=== PATIENT | female | born 1960 | race African-American/Black ===

== ENCOUNTER 2018-05-05 14:47 | Observation (INO) | payer MEDICARE ==
[~2018-05-05] VITALS: Ht 160 cm; Wt 39.1 kg
--- NOTE | ~2018-05-05 | EC ---
PATIENT:NORMA AHMADI DATE OF SERVICE: 05/05/18 SEX: F MEDICAL RECORD: [id number] DATE OF : 62 LOCATION:D.M2 D.213 AGE OF PATIENT: 58 ADMISSION DATE: 05/05/18 REFERRING PHYSICIAN: INTERPRETING PHYSICIAN: MARY CARMEN PLASENCIA MD ECHOCARDIOGRAM REPORT ECHO CHARGES 4 ECHO COMPLETE Date: 05/06/18 CLINICAL DIAGNOSIS: SYNCOPE EPISODE, HX OF HTN ECHOCARDIOGRAPHIC MEASUREMENTS (adult normal given) AC root (d.<3.7cm) 3.5 cm LV Septum d (<1.2 cm> 1.7 cm Valve Excursion 1.6 cm LV Septum (systole) 2.0 cm Left Atria (s.<4.0cm> 4.4 cm LVPW d(<1.2cm) 1.5 cm RV (d.<2.3cm) 3.8 cm LVPW (sytole) 2.1 cm LV diastole(<5.6CM) 5.3 cm MV E-F(>70mm/sec) cm LV systole 3.5 cm LVOT Diameter 1.9 cm MV exc.(>10mm) 1.9 cm Est.ejection fraction (50-75%) % DOPPLER: LVIT cm/sec A 117 cm/sec E 92.0 cm/sec LA cm/sec RVSP 51 mmHg LVOT 134 cm/sec AOP1/2T m/s Asc. Ao 205 cm/sec RVOT 94 cm/sec RA cm/sec PA 178 cm/sec AV Gradient Peak 16.84mmHg AV Mean 7.81 mmHg AV Area 1.8 cm MV Gradient Peak 5.52 mmHg MV Mean 2.77 mmHg MV Area cm COMMENTS: Motor Vehicle Dispatcher: Iron SHABAZZ Slat Basket Maker Machine: 1 Dr. Plasencia TAPE# PACS Pericardial Effusion N DATE OF SERVICE: 05/06/2018 FINDINGS: 1. Left ventricular chamber size is within normal limits. Left ventricular systolic function is normal. Overall ejection fraction is estimated at 60%. 2. Left atrium is enlarged at 4.4 cm. Right atrium and right ventricle chamber sizes are as well mildly dilated. 3. Valvular structures have normal structure and motion. 4. Doppler interrogation reveals mild mitral regurgitation and mild tricuspid regurgitation. No other valvular insufficiency or stenosis. Pulmonary systolic ECHOCARDIOGRAM REPORT [id number] NORMA AHMADI pressure is elevated, estimated at 51 mmHg. 5. Cljqa-ye-xexhm pericardial effusion is present. This is not hemodynamically significant. No evidence of left ventricular thrombus. TRANSINT:[id number] Voice Confirmation ID: [id number] DOCUMENT ID: [id number] MARY CARMEN PLASENCIA MD CC: [id number] DICTATION DATE: 05/06/18 1340 ONION TIER: 05/06/18 1646 ADM IN [facility] [address] [place] [address]
[~2018-05-05 14:47] MED LIST: ALDACTONE25 MG PO; ASPIRIN325 MG PO; FERRETTS324 MG PO; HYDRALAZINE HCL50 MG PO; HYDROCODON-ACE1 EAC7 PO; ISOSORBIDE DINI20 MG PO; LASIX40 MG PO; NORVASC10 MG PO; PROZAC20 MG PO; RENVELA800 MG PO; ROCALTROL0.5 MCG PO; ROXICODONE5 MG PO; SODIUM BICARBO325 MG PO; TUMS500 MG PO
[2018-05-05] MEDS ORDERED: SENSIPAR60 MG PO (14:54)
--- NOTE | 2018-05-05 16:57 | MORECARE ---
CASE MANAGEMENT DISCHARGE SUMMARY PATIENT: NORMA AHMADI UNIT: [id number] ADM DATE: 05/05/18 AGE: 58 : 62 SEX: F ROOM/BED: D.[facility] AUTHOR: VICTORIA BALL PHYSICIAN: REFERRING PHYSICIAN: BEATRIZ VIGIL MD DATE OF SERVICE: 05/05/18 Discharge Plan Patient Name: NORMA AHMADI [facility] [facility] 1960 Planned Disposition: Anticipated Discharge Date: Discharge Date: Expected LOS: Initial Reviewer: [email or web address] Initial Review Date: 05/05/2018 Generated: 05/05/18 5:57 pm Patient Name: NORMA AHMADI Page 80215 at 6437 All edits/amendments must be made on the electronic document DICTATION DATE: 05/05/181655 HYDROELECTRIC PLANT OPERATOR: KAMRYN 05/05/181655 RPT#: [id number] DC DATE: STATUS: ADM IN [facility] [address] [place] [address] END OF REPORT
--- NOTE | 2018-05-05 17:04 | MORECARE ---
CASE MANAGEMENT DISCHARGE SUMMARY PATIENT: NORMA AHMADI UNIT: [id number] ADM DATE: 05/05/18 AGE: 58 : 62 SEX: F ROOM/BED: D.2131 AUTHOR: VICTORIA BALL PHYSICIAN: REFERRING PHYSICIAN: BEATRIZ VIGIL MD DATE OF SERVICE: 05/05/18 Discharge Plan Patient Name: NORMA AHMADI Facility: [facility]:[place] : 1960 Planned Disposition: Anticipated Discharge Date: Discharge Date: Expected LOS: Initial Reviewer: [email or web address] Initial Review Date: 05/05/2018 Generated: 05/05/18 6:04 pm Comments DCP- Discharge Planning Updated by LISA: Ekta Venegas on 05/05/18 4:[address] CM met with patient regarding dc needs/plans. Patient is in agreement to evaluation for CM. A/O X3. Patient states she lives in her house, alone. She states she sometimes cares for her grandchildren. PCP: Vincent Dozier. Pharmacy: [facility]. Independent in ADL's. Emergency Contact: Mica Victoria (friend/S-I-L) #[phone]. States her brother, Brian Victoria (brother) same phone #, will drive her home upon discharge. DME: None. HHS: None. States she "may look into getting someone to assist with housework, it's getting harder to get it done." HD: Vincent M/W/ and states she drives herself to and from appointments. Patient denies the need for HHS, Rehab at this time. CM will assist with dc needs/plans PRN. Ekta Venegas RN, CM Last DP export: 05/05/18 3:57 pm Patient Name: NORMA AHMADI Page 45131 at 1704 All edits/amendments must be made on the electronic document DICTATION DATE: 05/05/18 170 LITIGATION EXAMINER: KAMRYN 05/05/18 170 RPT#: [id number] DC DATE: STATUS: ADM IN [facility] [address] [place] [address] END OF REPORT
--- NOTE | 2018-05-05 17:41 | MORECARE ---
CASE MANAGEMENT DISCHARGE SUMMARY PATIENT: NORMA AHMADI UNIT: [id number] ADM DATE: 05/05/18 AGE: 58 : 62 SEX: F ROOM/BED: D.2136 AUTHOR: VICTORIA BALL PHYSICIAN: REFERRING PHYSICIAN: BEATRIZ VIGIL MD DATE OF SERVICE: 05/05/18 Discharge Plan Patient Name: NORMA AHMADI Facility: [facility]:[place] : 1960 Planned Disposition: Anticipated Discharge Date: Discharge Date: Expected LOS: Initial Reviewer: [email or web address] Initial Review Date: 05/05/2018 Generated: 05/05/18 6:40 pm DCP- Discharge Planning Updated by [email or web address]: Ekta Venegas on 05/05/18 4:[address] CM met with patient regarding dc needs/plans. Patient is in agreement to evaluation for CM. A/O X3. Patient states she lives in her house, alone. She states she sometimes cares for her grandchildren. PCP: Vincent Dozier. [facility]. Independent in ADL's. Emergency Contact: Mica Victoria (friend/S-I-L) #[phone]. States her brother, Brian Victoria (brother) same phone #, will drive her home upon discharge. DME: None. HHS: None. States she "may look into getting someone to assist with housework, it's getting harder to get it done." HD: Vincent M/W/ and states she drives herself to and from appointments. Patient denies the need for HHS, Rehab at this time. CM will assist with dc needs/plans PRN. Ekta Venegas RN, CM DCPIA - Discharge Planning Initial Assessment Updated by [email or web address]: Ekta Venegas on 05/05/18 5:33 pm * Is the patient Alert and Oriented? Yes * How many steps to enter\\exit or inside your home? * PCP Vincent Dozier * Pharmacy [facility] * Preadmission Environment Home Alone * ADLs Independent * Equipment Grab Bars * Other Equipment NA * List name and contact numbers for known caregivers / representatives who currently or will assist patient after discharge: Mica Victoria (S-I-L) #[phone] * Verbal permission to speak to the caregivers and representatives has been obtained from the patient. N/A * Community resources currently utilized None * Please name any agencies selected above. NA * Additional services required to return to the preadmission environment? No * Can the patient safely return to the preadmission environment? Yes * Has this patient been hospitalized within the prior 30 days at any hospital? Yes Last DP export: 05/05/18 4:04 pm Patient Name: NORMA AHMADI Page 97804 at 1741 All edits/amendments must be made on the electronic document DICTATION DATE: 05/05/181739 BACK HOE OPERATOR: KAMRYN 05/05/181739 RPT#: [id number] DC DATE: STATUS: ADM IN [facility] [address] [place] [address] END OF REPORT
[2018-05-05 17:57] VITALS: BMI 18.6
[2018-05-05 20:46] VITALS: BP 144/76
[2018-05-06 00:03] VITALS: BP 196/87
[2018-05-06 04:17] VITALS: BP 147/76
[2018-05-06 06:18] LABS: BASOPHILS 0.3 % (0-2); EOSINOPHILS 2.3 % (0-7); HEMATOCRIT 31.5 % (36.0-48.0); IMMATURE GRANULOCYTES 0.2 % (0-5); LYMPHOCYTES 23.4 % (15-50); MCH 29.4 pg (26.0-34.0); MCHC 31.7 g/dL (31.0-37.0); MCV 92.6 fL (80.0-100.0); MEAN PLATELET VOLUME 10.3 fL (7.4-10.4); MONOCYTES 5.5 % (2-11); NEUTROPHILS 68.3 % (40-80); RDW 15.6 % (11.5-14.5); WBC 9.2 10x3/uL (4.8-10.8)
[2018-05-06 06:40] LABS: PLATELET COUNT 394 10x3/uL (130-400)
[2018-05-06 06:43] LABS: ANION GAP 21.5 mmol/L (8-16); CALCIUM 8.5 mg/dL (8.5-10.1); CARBON DIOXIDE 24.1 mmol/L (21.0-32.0); CREATININE - SERUM 8.8 mg/dL (0.6-1.3); POTASSIUM - SERUM 3.6 mmol/L (3.5-5.1)
[2018-05-06 08:25] VITALS: BP 155/95
--- NOTE | 2018-05-06 08:38 | MORECARE ---
CASE MANAGEMENT DISCHARGE SUMMARY PATIENT: NORMA AHMADI UNIT: [id number] ADM DATE: 05/05/18 AGE: 58 : 62 SEX: F ROOM/BED: D.2133 AUTHOR: VICTORIA BALL PHYSICIAN: REFERRING PHYSICIAN: BEATRIZ VIGIL MD DATE OF SERVICE: 05/06/18 Discharge Plan Patient Name: NORMA AHMADI Facility: [facility]:[place] : 1960 Planned Disposition: Home Anticipated Discharge Date: Discharge Date: Expected LOS: Initial Reviewer: [email or web address] Initial Review Date: 05/05/2018 Generated: 05/06/18 9:37 am DCP- Discharge Planning Updated by [email or web address]: Ekta Venegas on 05/05/18 4:[address] CM met with patient regarding dc needs/plans. Patient is in agreement to evaluation for CM. A/O X3. Patient states she lives in her house, alone. She states she sometimes cares for her grandchildren. PCP: Vincent Dozier. [facility]acy[facility]. Independent in ADL's. Emergency Contact: Mica Victoria (friend/S-I-L) #[phone]. States her brother, Brian Victoria (brother) same phone #, will drive her home upon discharge. DME: None. HHS: None. States she "may look into getting someone to assist with housework, it's getting harder to get it done." HD: Vincent M/W/ and states she drives herself to and from appointments. Patient denies the need for HHS, Rehab at this time. CM will assist with dc needs/plans PRN. Ekta Venegas RN, CM DCPIA - Discharge Planning Initial Assessment Updated by [email or web address]: Ekta Venegas on 05/05/18 5:33 pm * Is the patient Alert and Oriented? Yes * How many steps to enter\\exit or inside your home? * PCP Vincent Dozier * [facility]acy [facility] * Preadmission Environment Home Alone * ADLs Independent * Equipment Grab Bars * Other Equipment NA * List name and contact numbers for known caregivers / representatives who currently or will assist patient after discharge: Mica Victoria (S-I-L) #[phone] * Verbal permission to speak to the caregivers and representatives has been obtained from the patient. N/A * Community resources currently utilized None * Please name any agencies selected above. NA * Additional services required to return to the preadmission environment? No * Can the patient safely return to the preadmission environment? Yes * Has this patient been hospitalized within the prior 30 days at any hospital? Yes Last DP export: 05/05/18 4:41 pm Patient Name: NORMA AHMADI Page 47706 at 0838 All edits/amendments must be made on the electronic document DICTATION DATE: 05/06/18836 METAL FURNITURE ASSEMBLY SUPERVISOR: KAMRYN 05/06/18836 RPT#: [id number] DC DATE: STATUS: ADM IN [facility] [address] [place] [address] END OF REPORT
[2018-05-06 10:32] VITALS: Ht 160 cm; Wt 39.1 kg
[2018-05-06 12:41] VITALS: BP 162/77
[2018-05-06 21:41] VITALS: BP 127/70
[2018-05-07 01:23] VITALS: BP 138/81
[2018-05-07 05:44] VITALS: BP 139/69
[2018-05-07 08:37] VITALS: BP 125/88
[2018-05-07 11:54] VITALS: BP 138/69
[2018-05-08 05:14] LABS: HEPATITIS BE ANTIGEN Negative (Negative)
--- NOTE | 2018-05-10 12:45 | MORECARE ---
CASE MANAGEMENT DISCHARGE SUMMARY PATIENT: NORMA AHMADI UNIT: [id number] ADM DATE: 05/05/18 AGE: 58 : 62 SEX: F ROOM/BED: D.2134 AUTHOR: VICTORIA BALL PHYSICIAN: REFERRING PHYSICIAN: BEATRIZ VIGIL MD DATE OF SERVICE: 05/10/18 Discharge Plan Patient Name: NORMA AHMADI Facility: [facility]:[place] : 1960 Planned Disposition: Home Anticipated Discharge Date: 05/07/18 Discharge Date: 05/07/2018 Expected LOS: 2 Initial Reviewer: [email or web address] Initial Review Date: 05/05/2018 Generated: 05/10/18 1:44 pm DCP- Discharge Planning Updated by [email or web address]: Ekta Venegas on 05/05/18 4:[address] CM met with patient regarding dc needs/plans. Patient is in agreement to evaluation for CM. A/O X3. Patient states she lives in her house, alone. She states she sometimes cares for her grandchildren. PCP: Vincent Dozier. [facility]acy: [facility]. Independent in ADL's. Emergency Contact: Mica Victoria (friend/S-I-L) #[phone]. States her brother, Brian Victoria (brother) same phone #, will drive her home upon discharge. DME: None. HHS: None. States she "may look into getting someone to assist with housework, it's getting harder to get it done." HD: Vincent M/W/ and states she drives herself to and from appointments. Patient denies the need for HHS, Rehab at this time. CM will assist with dc needs/plans PRN. Ekta Venegas RN, CM DCPIA - Discharge Planning Initial Assessment Updated by [email or web address]: Ekta Venegas on 05/05/18 5:33 pm * Is the patient Alert and Oriented? Yes * How many steps to enter\\exit or inside your home? * PCP Vincent Dozier * Pharmacy [facility] * Preadmission Environment Home Alone * ADLs Independent * Equipment Grab Bars * Other Equipment NA * List name and contact numbers for known caregivers / representatives who currently or will assist patient after discharge: Mica Victoria (S-I-L) #[phone] * Verbal permission to speak to the caregivers and representatives has been obtained from the patient. N/A * Community resources currently utilized None * Please name any agencies selected above. NA * Additional services required to return to the preadmission environment? No * Can the patient safely return to the preadmission environment? Yes * Has this patient been hospitalized within the prior 30 days at any hospital? Yes Coverage Notice Reviewer: [email or web address] Kendra Tamiko Bermudez Notice Issued Date-Time: 05/06/2018 16:03 Notice Type: Medicare Outpatient Observation Notice Notice Delivered To: Relationship to Patient: [employer] Name: Delivery Method: - Francoise Days: Prior Verbal Notification: Recipient Understood Notice: Recipient Signature: Med Rec Note Co-signed by Attending: Coverage Notice Comment: ATTEMPTED TO DELIVER VEGA. PATIENT AT SINK GIVING HERSELF A BATH. SHE TOLD ME TO COME IN AND ONCE I WAS IN THE ROOM, SHE TOLD ME SHE WAS NOT TAKING ANY VISITORS AT THIS TIME. WILL TRY AGAIN IN THE AM. Last DP export: 05/06/18 7:38 am Patient Name: NORMA AHMADI Page 43284 at 1245 All edits/amendments must be made on the electronic document DICTATION DATE: 05/10/18 1244 READING ASSISTANT: KAMRYN 05/10/18 1244 RPT#: [id number] DC DATE:05/07/18 STATUS: DIS IN [facility] [address] [place] [address] END OF REPORT
== END 2018-05-07 12:11 | disposition home or self-care (01) ==
LOC: D.ER 14:47 → D.EDHOLD 15:47 → OBSVTIME 15:48 → D.M2 16:44
PROVIDERS: Internal Medicine Nephrology; ADMIT Internal Medicine Nephrology
DX: R55 Syncope and collapse (principal); I13.2 Hypertensive heart and chronic kidney disease with heart failure and with stage 5 chronic kidney disease, or end stage renal disease; N18.6 End stage renal disease; I50.9 Heart failure, unspecified; Z99.2 Dependence on renal dialysis; D63.1 Anemia in chronic kidney disease; S83.91XA Sprain of unspecified site of right knee, initial encounter; X58.XXXA Exposure to other specified factors, initial encounter

== ENCOUNTER 2019-09-11 18:02 | Inpatient (IN) | payer MEDICARE ==
[~2019-09-11] VITALS: Ht 160 cm; Wt 47.7 kg
[~2019-09-11 18:02] MED LIST changes: +SENSIPAR60 MG PO
[2019-09-11 18:25] LABS: HEMOGLOBIN 11.2 g/dL (12-16); MCH 30.9 pg (26.0-34.0); MCV 96.4 fL (80.0-100.0); MEAN PLATELET VOLUME 9.3 fL (7.4-10.4); NEUTROPHILS 77.4 % (40-80); PLATELET COUNT 362 10x3/uL (130-400); RBC 3.63 10x6/uL (4.00-5.40); RDW 16.3 % (11.5-14.5); WBC 8.6 10x3/uL (4.8-10.8)
[2019-09-11 18:35] LABS: ANION GAP 16.4 mmol/L (8-16); CALCIUM 7.2 mg/dL (8.5-10.1); CARBON DIOXIDE 23.5 mmol/L (21.0-32.0); CREATININE - SERUM 6.9 mg/dL (0.6-1.3); POTASSIUM - SERUM 3.9 mmol/L (3.5-5.1)
[2019-09-11 18:41] LABS: ALBUMIN 3.1 g/dL (3.4-5.0); BILIRUBIN - TOTAL 0.36 mg/dL (0.2-1.3); PROTEIN - SERUM 7.2 g/dL (6.4-8.2)
--- NOTE | 2019-09-11 19:30 | NUR ---
RECEIVED PT TO ROOM 2307 VIA STRETCHER ACCOMPANIED BY ER STAFF. PT TRANSFERRED TO ICU BED, MONITORS ESTABLISHED WITH ALARMS ON, SR ON CM, VSS. PT VERY LETHARGIC BUT ABLE TO FOLLOW MOST COMMANDS. WILL REVIEW ORDERS AND MONITOR.
[2019-09-11 19:40] VITALS: BP 145/92; BMI 19.5
[2019-09-11 20:00] VITALS: BP 113/76
--- NOTE | 2019-09-11 20:25 | NUR ---
RAYRAY SEGOVIA CARBON FURNACE OPERATOR FOR RENAL NOTIFIED REGARDING PT CONDITION/STATUS AND DIALYSIS ORDER CLARIFIED, ADDITIONAL ORDERS RECEIVED.
[2019-09-11 21:00] VITALS: BP 113/64
--- NOTE | 2019-09-11 21:15 | NUR ---
PER PT HER MOTHER (CHERYLE HANSEN) IS HER EMERGENCY CONTACT. PERMISSION FROM [employer] SKINNERAUTOMOTIVE GENERATOR REPAIRER GIVEN TO CALL HER AND PROVIDE PT PASSWORD. MS. HANSEN CONTACTED AND INFORMATION PROVIDED.
[2019-09-11 22:00] VITALS: BP 116/76
--- NOTE | 2019-09-11 22:39 | NUR ---
IN AND OUT CATH ATTEMPTED UNDER STERILE TECHNIQUE WITH NO URINE RETURN. PATIENT REPORTS USUALLY DOES NOT PRODUCE URINE/VOID. ALFIE WELL
--- NOTE | 2019-09-11 22:45 | NUR ---
PT INCONTINENT OF LIQUID BROWN-YELLOW BM. COMPLETE CHG BATH AND LINEN CHANGE DONE, ARLETTE CARE PROVIDED, VSS.
--- NOTE | 2019-09-11 22:47 | NUR ---
MCNEILL AND DEBIT CARD SENT WITH WILDLIFE REFUGE SPECIALIST TO BE LOCKED UP IN SAFE. DOCUMENT PLACED ON PT CHART.
[2019-09-11 23:00] VITALS: BP 108/76
--- NOTE | 2019-09-11 23:00 | NUR ---
REASSESSMENT PER FLOWSHEET, NO ACUTE CHANGES NOTED AT THIS TIME. PT REMAINS DISORIENTED TO SITUATION AND LETHARGIC, SR ON CM, VSS.
[2019-09-12] VITALS (10 sets, daily range): BP systolic 109–150; BP diastolic 62–86; Ht 160 cm; Wt 47.7 kg
--- NOTE | 2019-09-12 01:20 | NUR ---
PT AROUSES TO VERBAL STIMULI, FALLS BACK ASLEEP EASILY, VSS, SR ON CM, CONT TO MONITOR.
--- NOTE | 2019-09-12 03:20 | NUR ---
REASSESSMENT PER FLOWSHEET, SR ON CM, VSS, BED LOW, ALARM ON, CALL LIGHT IN REACH.
[2019-09-12 03:39] LABS: HEMATOCRIT 34.9 % (36.0-48.0); HEMOGLOBIN 11.3 g/dL (12-16); LYMPHOCYTES 22.3 % (15-50); MCH 31.3 pg (26.0-34.0); MCHC 32.4 g/dL (31.0-37.0); MCV 96.7 fL (80.0-100.0); MEAN PLATELET VOLUME 9.7 fL (7.4-10.4); NEUTROPHILS 71.6 % (40-80); PLATELET COUNT 373 10x3/uL (130-400); RBC 3.61 10x6/uL (4.00-5.40); RDW 16.5 % (11.5-14.5); WBC 8.6 10x3/uL (4.8-10.8)
[2019-09-12 03:45] LABS: ALBUMIN 3.1 g/dL (3.4-5.0); ANION GAP 16.4 mmol/L (8-16); BILIRUBIN - TOTAL 0.44 mg/dL (0.2-1.3); CALCIUM 7.1 mg/dL (8.5-10.1); CARBON DIOXIDE 24.1 mmol/L (21.0-32.0); CREATININE - SERUM 7.6 mg/dL (0.6-1.3); PROTEIN - SERUM 7.1 g/dL (6.4-8.2)
[2019-09-12 03:48] LABS: POTASSIUM - SERUM 4.5 mmol/L (3.5-5.1)
--- NOTE | 2019-09-12 05:33 | NUR ---
PT RESTING IN BED WITH EYES CLOSED, SR ON CM, VSS.
--- NOTE | 2019-09-12 06:10 | NUR ---
DR BAI ON UNIT ROUNDING ON PT, UPDATE GIVEN, NO ORDERS RECEIVED AT THIS TIME.
--- NOTE | 2019-09-12 07:25 | NUR ---
REPORT RECIEVED, SHIFT ASSESSMENT COMPLETE, ,PT IS LETHARGIC LAYING IN BED, ALL PPP, VSS, CALL LIGHT IN REACH
--- NOTE | 2019-09-12 17:46 | MORECARE ---
CASE MANAGEMENT DISCHARGE SUMMARY PATIENT: NORMA AHMADI UNIT: [id number] ADM DATE: 09/11/19 AGE: 59 : 62 SEX: F ROOM/BED: D.2227 AUTHOR: VICTORIA BALL PHYSICIAN: REFERRING PHYSICIAN: REJI ZULETA MD DATE OF SERVICE: 09/12/19 Discharge Plan Patient Name: NORMA AHMADI [facility] [facility] 1960 Planned Disposition: Home Anticipated Discharge Date: Discharge Date: Expected LOS: Initial Reviewer: [email or web address] Initial Review Date: 09/12/2019 Generated: 09/12/19 6:45 pm DCPIA - Discharge Planning Initial Assessment Updated by [email or web address]: Clarisa Davis on 09/12/19 5:44 pm * Is the patient Alert and Oriented? Yes * How many steps to enter\exit or inside your home? * PCP [facility] * Pharmacy [facility] * Preadmission Environment Home with Family * ADLs Independent * Equipment None * List name and contact numbers for known caregivers / representatives who currently or will assist patient after discharge: MAGDY PYLE [phone] * Verbal permission to speak to the caregivers and representatives has been obtained from the patient. Yes * Community resources currently utilized None * Additional services required to return to the preadmission environment? No * Can the patient safely return to the preadmission environment? Yes * Has this patient been hospitalized within the prior 30 days at any hospital? No Patient Name: NORMA AHMADI Page [phone] at 1746 All edits/amendments must be made on the electronic document DICTATION DATE: 09/12/191745 PRIVATE BRANCH EXCHANGE SERVICE ADVISOR: KAMRYN 09/12/191745 RPT#: [id number] DC DATE: STATUS: ADM IN [facility] [address] [place] [address] END OF REPORT
--- NOTE | 2019-09-12 17:57 | MORECARE ---
CASE MANAGEMENT DISCHARGE SUMMARY PATIENT: NORMA AHMADI UNIT: [id number] ADM DATE: 09/11/19 AGE: 59 : 62 SEX: F ROOM/BED: D.2227 AUTHOR: [email or web address] PHYSICIAN: REFERRING PHYSICIAN: REJI ZULETA MD DATE OF SERVICE: 09/12/19 Discharge Plan Patient Name: NORMA AHMADI Facility: [facility]:[place] : 1960 Planned Disposition: Home Anticipated Discharge Date: Discharge Date: Expected LOS: Initial Reviewer: [email or web address] Initial Review Date: 09/12/2019 Generated: 09/12/19 6:57 pm Comments DCP- Discharge Planning Updated by [email or web address]: Clarisa Davis on 09/12/19 4:[address] Patient Name: NORMA AHMADI Admission Status: ER Accout number: [id number] Admission Date: 09-11-2019 : 1960 Admission Diagnosis: Attending: REJI ZULETA Current LOS: 1 Anticipated DC Date: Planned Disposition: Home Primary Insurance: MEDICARE A & B Discharge Planning Comments: CM met with patient to complete initial dc planning assessment. CM educated patient on the CM role and verbal consent given by patient to complete assessment. Patient lives at home with her mother where she is independent with her care. At discharge patient plans to return home and feels this is a safe discharge. CM discussed availability of home health, rehab services, and medical equipment. Patient didn't realize that she was in [place] but did know she was in hospital. Patient states that she will have someone transport her home upon discharge. Patient has dialysis in [place] MWF @ 0600. CM will notify Cynthia with patient pathways of patient's admit. Patient denied known discharge needs at this time. CM will continue to follow and will assist as needed with dc plans/needs. [employer] Safety Program Coordinator: Clarisa Davis DCPIA - Discharge Planning Initial Assessment Updated by [email or web address]: Clarisa Davis on 09/12/19 5:44 pm * Is the patient Alert and Oriented? Yes * How many steps to enter\exit or inside your home? * PCP [facility] * Pharmacy [facility] * Preadmission Environment Home with Family * ADLs Independent * Equipment None * List name and contact numbers for known caregivers / representatives who currently or will assist patient after discharge: MAGDY PYLE [phone] * Verbal permission to speak to the caregivers and representatives has been obtained from the patient. Yes * Community resources currently utilized None * Additional services required to return to the preadmission environment? No * Can the patient safely return to the preadmission environment? Yes * Has this patient been hospitalized within the prior 30 days at any hospital? No Last DP export: 09/12/19 4:46 p Patient Name: NORMA AHMADI Page 57644 at 1757 All edits/amendments must be made on the electronic document DICTATION DATE: 09/12/191756 AVIATION WARFARE SYSTEMS OPERATOR: KAMRYN 09/12/191756 RPT#: [id number] DC DATE: STATUS: ADM IN [facility] [address] [place] [address] END OF REPORT
--- NOTE | 2019-09-12 19:20 | NUR ---
LYING IN BED. ALERT AND ORIENTED X4. CALM, COOPERATIVE. NO DISTRESS. RESP EVEN AND NONLABORED. SALINE LOCK NOTED TO RT FOREARM. LT ARM RESERVE DUE TO AV FISTULA. HAD DIALYSIS TODAY. DENIES PAIN. NONPROD COUGH NOTED. STATES SHE DOES NOT URINATE DUE TO CKD. V/S STABLE. REVIEWED HOME MED REC WITH PT AND MADE CHANGES. AMBULATORY. SR ELEVATED X2. CL IN REACH. NO MED ORDERS NOTED.
[2019-09-12 20:04] LABS: HEMATOCRIT 34.5 % (36.0-48.0); HEMOGLOBIN 11.4 g/dL (12-16); LYMPHOCYTES 23.1 % (15-50); MCH 31.6 pg (26.0-34.0); MCV 95.6 fL (80.0-100.0); MEAN PLATELET VOLUME 9.4 fL (7.4-10.4); NEUTROPHILS 67.6 % (40-80); PLATELET COUNT 346 10x3/uL (130-400); RBC 3.61 10x6/uL (4.00-5.40); RDW 16.5 % (11.5-14.5)
[2019-09-12 20:10] LABS: ANION GAP 13.1 mmol/L (8-16); BILIRUBIN - TOTAL 0.45 mg/dL (0.2-1.3); CALCIUM 7.3 mg/dL (8.5-10.1); CARBON DIOXIDE 26.9 mmol/L (21.0-32.0); PROTEIN - SERUM 7.2 g/dL (6.4-8.2)
[2019-09-12 20:11] LABS: CREATININE - SERUM 4.4 mg/dL (0.6-1.3)
--- NOTE | 2019-09-12 20:40 | NUR ---
INSTRUCTED TO TRANSFER PT TO [facility] RENAL UNIT. SPOKE WITH GABBIE ANDERSON ABOUT PT NOT HAVING ANY MEDS ORDERED. HE STATES HE WILL REVIEW THE CHART.
--- NOTE | 2019-09-12 21:54 | NUR ---
REPORT CALLED TO RACQUEL CUEVAS ON [facility]
[2019-09-13 00:30] VITALS: BP 126/72
[2019-09-13 06:28] VITALS: BP 125/68
[2019-09-13 07:09] LABS: HEMATOCRIT 34.8 % (36.0-48.0); HEMOGLOBIN 11.2 g/dL (12-16); LYMPHOCYTES 32.1 % (15-50); MCH 30.9 pg (26.0-34.0); MCHC 32.2 g/dL (31.0-37.0); MCV 96.1 fL (80.0-100.0); MEAN PLATELET VOLUME 9.7 fL (7.4-10.4); NEUTROPHILS 58.2 % (40-80); PLATELET COUNT 330 10x3/uL (130-400); RBC 3.62 10x6/uL (4.00-5.40); RDW 16.3 % (11.5-14.5); WBC 5.6 10x3/uL (4.8-10.8)
[2019-09-13 07:16] LABS: ALBUMIN 3.2 g/dL (3.4-5.0); BILIRUBIN - TOTAL 0.33 mg/dL (0.2-1.3); CARBON DIOXIDE 24.2 mmol/L (21.0-32.0); PROTEIN - SERUM 6.8 g/dL (6.4-8.2)
[2019-09-13 07:25] LABS: ANION GAP 18.3 mmol/L (8-16); CREATININE - SERUM 5.9 mg/dL (0.6-1.3); POTASSIUM - SERUM 3.5 mmol/L (3.5-5.1)
[2019-09-13 07:27] LABS: CALCIUM 6.8 mg/dL (8.5-10.1)
[2019-09-13 09:14] VITALS: BP 116/65
[2019-09-13 10:09] LABS: HEPATITIS C ANTIBODY >11.0 S/CO RAT (0.0-0.9)
[2019-09-13 16:52] VITALS: BP 136/69
[2019-09-13 20:00] VITALS: BP 115/67
--- NOTE | 2019-09-13 20:31 | NUR ---
EVENING ROUNDS COMPLETE. PT LAYING IN BED. NO SIGNS OF DISTRESS. PT DENIES ANY PAIN OR NEEDS AT THIS TIME. CL IN REACH, BED IN LOWEST POSITION.
[2019-09-14] VITALS: BP 124/64
[2019-09-14 04:00] VITALS: BP 119/74
[2019-09-14 05:47] LABS: BASOPHILS 0.6 % (0-2); EOSINOPHILS 1.7 % (0-7); HEMATOCRIT 33.8 % (36.0-48.0); HEMOGLOBIN 10.9 g/dL (12-16); IMMATURE GRANULOCYTES 0.5 % (0-5); MCH 30.9 pg (26.0-34.0); MCHC 32.2 g/dL (31.0-37.0); MCV 95.8 fL (80.0-100.0); MEAN PLATELET VOLUME 9.4 fL (7.4-10.4); MONOCYTES 9.4 % (2-11); NEUTROPHILS 60.8 % (40-80); PLATELET COUNT 289 10x3/uL (130-400); RBC 3.53 10x6/uL (4.00-5.40); RDW 15.8 % (11.5-14.5); WBC 6.3 10x3/uL (4.8-10.8)
[2019-09-14 06:22] LABS: ALBUMIN 3.2 g/dL (3.4-5.0); BILIRUBIN - TOTAL 0.34 mg/dL (0.2-1.3); PROTEIN - SERUM 6.8 g/dL (6.4-8.2)
[2019-09-14 06:39] LABS: ANION GAP 15.1 mmol/L (8-16); CALCIUM 6.6 mg/dL (8.5-10.1); CARBON DIOXIDE 31.9 mmol/L (21.0-32.0); CREATININE - SERUM 7.9 mg/dL (0.6-1.3)
[2019-09-14 09:35] VITALS: BP 139/73
--- NOTE | 2019-09-14 10:37 | NUR ---
TAKEN TO DIALYSIS BY BED. WILL CONT. PLAN OF CARE.
[2019-09-14] MEDS ORDERED: PHOSLO667 MG PO (11:49)
--- NOTE | 2019-09-14 15:39 | NUR ---
BACK FROM DIALYSIS. IV DCD. DC PLANS GIVEN. UNDERSTANDING VOICED. ESCORTED TO CAR.
[2019-09-15 13:09] LABS: HEPATITIS BE ANTIBODY Positive (Negative)
== END 2019-09-14 15:40 | disposition home or self-care (01) | DRG 70 ==
LOC: D.ER 18:02 → D.ICU 18:43 → D.M2 18:43 → D.MS 09-12 15:57 → D.M2 09-12 21:54
PROVIDERS: Family Medicine; Internal Medicine Nephrology; ADMIT Internal Medicine Nephrology; ATTEND Internal Medicine Nephrology
PROC: 5A1D70Z Performance of Urinary Filtration, Intermittent, Less than 6 Hours Per Day (ICD-10-PCS; principal; 2019-09-11)
DX: G93.41 Metabolic encephalopathy (principal); N18.6 End stage renal disease; E43 Unspecified severe protein-calorie malnutrition; I13.2 Hypertensive heart and chronic kidney disease with heart failure and with stage 5 chronic kidney disease, or end stage renal disease; Z68.1 Body mass index [BMI] 19.9 or less, adult; N25.81 Secondary hyperparathyroidism of renal origin; I50.9 Heart failure, unspecified; Z99.2 Dependence on renal dialysis; D63.1 Anemia in chronic kidney disease; F32.9 Major depressive disorder, single episode, unspecified; B18.2 Chronic viral hepatitis C; D50.9 Iron deficiency anemia, unspecified; J44.9 Chronic obstructive pulmonary disease, unspecified; F10.10 Alcohol abuse, uncomplicated; Z72.0 Tobacco use

== ENCOUNTER 2019-12-13 14:15 | Inpatient (IN) | payer MEDICARE ==
[~2019-12-13] VITALS: Ht 160 cm; Wt 47.6 kg
[~2019-12-13 14:15] MED LIST changes: +PHOSLO667 MG PO
[2019-12-13] MEDS ORDERED: TENORMIN50 MG PO (15:13)
[2019-12-13 15:16] VITALS: BP 151/85
[2019-12-13] MEDS ORDERED: CHRONULAC30 ML PO (15:16)
[2019-12-13 15:21] VITALS: BP 151/85
[2019-12-13 16:13] LABS: BASOPHILS 0.7 % (0-2); EOSINOPHILS 1.9 % (0-7); HEMATOCRIT 33.3 % (36.0-48.0); HEMOGLOBIN 10.7 g/dL (12-16); IMMATURE GRANULOCYTES 0.2 % (0-5); MCH 29.4 pg (26.0-34.0); MCHC 32.1 g/dL (31.0-37.0); MCV 91.5 fL (80.0-100.0); MEAN PLATELET VOLUME 10.3 fL (7.4-10.4); MONOCYTES 6.3 % (2-11); NEUTROPHILS 72.9 % (40-80); RBC 3.64 10x6/uL (4.00-5.40); RDW 15.6 % (11.5-14.5); WBC 9.2 10x3/uL (4.8-10.8)
[2019-12-13 16:36] LABS: CARBON DIOXIDE 25.5 mmol/L (21.0-32.0); CREATININE - SERUM 6.1 mg/dL (0.6-1.3); POTASSIUM - SERUM 3.5 mmol/L (3.5-5.1)
[2019-12-13 17:05] LABS: CALCIUM 6.6 mg/dL (8.5-10.1); PHOSPHOROUS 12.4 mg/dL (2.5-4.9)
[2019-12-13 17:06] LABS: PLATELET COUNT 433 10x3/uL (130-400)
--- NOTE | 2019-12-13 17:12 | NUR ---
CALLED CRITICAL LABS TO [facility] WITH RENAL, PHOS 12.4 AND CA 6.6, NEW ORDER FOR TUMS TID WITH MEALS.
--- NOTE | 2019-12-13 19:00 | NUR ---
REPORT RECEIVED, WILL CONTINUE POC. PATIENT IS AAOX4, LYING IN SEMI-FOWLERS POSITION. NO S/S OF DISTRESS OBSERVED, RR EVEN AND UNLABORED ON ROOM AIR. PATIENT DENIES NEEDS AT THIS TIME. CL IN REACH, BED LOCKED AND LOWERED. WILL CTM.
[2019-12-13 21:41] VITALS: BP 166/80
[2019-12-14 04:00] VITALS: BP 173/90
[2019-12-14 06:25] LABS: ANION GAP 19.9 mmol/L (8-16); CARBON DIOXIDE 24.5 mmol/L (21.0-32.0); POTASSIUM - SERUM 3.4 mmol/L (3.5-5.1)
[2019-12-14 06:28] LABS: BASOPHILS 0.9 % (0-2); EOSINOPHILS 2.8 % (0-7); HEMATOCRIT 31.6 % (36.0-48.0); HEMOGLOBIN 10.3 g/dL (12-16); IMMATURE GRANULOCYTES 0.2 % (0-5); LYMPHOCYTES 18.2 % (15-50); MCH 29.4 pg (26.0-34.0); MCHC 32.6 g/dL (31.0-37.0); MCV 90.3 fL (80.0-100.0); MEAN PLATELET VOLUME 10.3 fL (7.4-10.4); NEUTROPHILS 68.9 % (40-80); PLATELET COUNT 414 10x3/uL (130-400); RDW 15.4 % (11.5-14.5)
--- NOTE | 2019-12-14 07:30 | NUR ---
PT SITTING UP IN BED, RR EVEN AND UNLABORED. AXO. DENIES NEEDS OR PAIN AT THIS TIME. CALL LIGHT WITHIN REACH. BED IN LOWEST POSITION. WILL CONTINUE TO MONITOR.
[2019-12-14 07:42] LABS: PHOSPHOROUS 12.9 mg/dL (2.5-4.9)
[2019-12-14 07:43] LABS: CALCIUM 6.7 mg/dL (8.5-10.1)
--- NOTE | 2019-12-14 09:39 | NUR ---
DIALYSIS COORDINATOR: [facility] DIALYSIS THU/THU/THU @ 6:30AM NIDHI LOCKHART
[2019-12-14 11:25] VITALS: BP 148/84
--- NOTE | 2019-12-14 12:19 | NUR ---
I have reviewed this patient and I concur with the Shift Assessment completed by the Licensed Practical Nurse today this shift.
[2019-12-14 12:38] VITALS: Ht 160 cm; Wt 47.6 kg
--- NOTE | 2019-12-14 19:00 | NUR ---
REPORT RECEIVED, WILL CONTINUE POC. PATIENT IS AAOX4, SITTING UP IN BED. NO S/S OF DISTRESS OBSERVED, RR EVEN AND UNLABORED ON ROOM AIR. PATIENT DENIES NEEDS AT THIS TIME. CL IN REACH, BED LOCKED AND LOWERED. WILL CTM.
[2019-12-14 20:00] VITALS: BP 154/82
[2019-12-15 05:09] LABS: HEMATOCRIT 31.9 % (36.0-48.0); HEMOGLOBIN 10.3 g/dL (12-16); MCH 29.6 pg (26.0-34.0); MCHC 32.3 g/dL (31.0-37.0); MCV 91.7 fL (80.0-100.0); MEAN PLATELET VOLUME 10.1 fL (7.4-10.4); NEUTROPHILS 72.2 % (40-80); PLATELET COUNT 402 10x3/uL (130-400); RBC 3.48 10x6/uL (4.00-5.40); RDW 15.9 % (11.5-14.5); WBC 8.4 10x3/uL (4.8-10.8)
[2019-12-15 05:36] LABS: CALCIUM 7.8 mg/dL (8.5-10.1); CARBON DIOXIDE 27.2 mmol/L (21.0-32.0); POTASSIUM - SERUM 3.2 mmol/L (3.5-5.1)
[2019-12-15] MEDS ORDERED: EFFEXOR37.5 MG PO (05:40)
[2019-12-15] MEDS ORDERED: RisperDAL PO (05:41)
[2019-12-15 05:43] LABS: CREATININE - SERUM 5.1 mg/dL (0.6-1.3); PHOSPHOROUS 8.6 mg/dL (2.5-4.9)
--- NOTE | 2019-12-15 11:28 | NUR ---
D/C INSTRUCTIONS REVIEWED WITH PT, VERBALIZED UNDERSTANDING. NO PIV TO REMOVE. MEDICATIONS RECIEVED FROM PHARMACY. PT REFUSED TO STAY IN ROOM AND WAIT FOR RIDE. ESCORTED TO ER TO WAIT FOR FAMILY ARRIVAL
--- NOTE | 2019-12-15 13:19 | CN ---
PATIENT NAME:NORMA AHMADI MEDICAL RECORD: [id number] : 62 LOCATION:D. D.2106 ADMIT DATE: 12/13/19 ACCOUNT: [id number] CONSULTING PHYSICIAN: LA NENA STEVENS MD REFERRING PHYSICIAN: JUSTIN WHEATLEY DO DATE OF CONSULTATION: 12/14/2019 IDENTIFYING DATA: The patient is 59 years old and she is admitted to the hospital voluntarily. CHIEF COMPLAINT: Psychotic symptoms. HISTORY OF PRESENT ILLNESS: The patient has been having hallucinations. She says they have been going on for months and that the frequency and intensity cannot be tied to any external event as far as she can discern. The hallucinations have basically involved 3 persons or characters, 2 of them apparently are somewhat similar to animals and they will go with her and follow her. At times, she is very frightened by them. She denies substance abuse. She denies a psychiatric history. She endorses depressive symptoms and denies that she would seek to harm herself or others. Her overall presentation from a cognitive exam standpoint is intact and normal. ASSESSMENT: 1. Major depression. 2. Psychotic symptoms of uncertain etiology. 3. 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 PLAN: The patient will be started on Effexor at a dose of 75 mg twice daily. I am also going to prescribe a low dose of an antipsychotic medicine at bedtime for her. There are some complicating factors here. I spoke with the nurse practitioner who told me that yes indeed Norma was admitted here purely and exclusively for the purposes of evaluating these psychotic symptoms. Interestingly, the patient has not been telling me the full truth. Apparently, she has been confirmed positive with methamphetamine in recent weeks. She has also begun to drop her weight. Interestingly, there is a corresponding relationship between when this began and when she began living with a boyfriend. The patient emphatically denies substance abuse. 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 She tells the implausible story that not only did she contract hepatitis at this time from this single exposure, but also that this was the only time she has ever used methamphetamine or any illicit drug, and this was the only time that she has used anything intravenously. That just simply does not coincide with the circumstances. It is my strong suspicion that she is abusing methamphetamine and that the hallucinations if they even are present are related to the methamphetamine use. She clearly is depressed as is and almost ubiquitous problem with people on dialysis; however, the psychotic symptoms are less certain. In some ways, she is vague and in another way, she is overly specific and reporting them and I simply cannot rule out the fact that she may be flatly malingering or that these are somehow related to methamphetamine use. I understand that the complicating factors in getting drug screens from her. There is apparently a prohibition on drawing serum drug screens from the blood that has been sent through the dialysis machine, I am not sure why that would be the case, but in any way that is told to me by the nurse practitioner. In the 2nd and place, the patient does not make urine, so it is difficult to check in that way. Obviously, there are other means of doing this CONSULT REPORT [id number] NORMA AHMADI such as independent blood draw, but then she has to go to the lab. She has to give consent and that may be problematic. Hair samples and saliva samples are often done, I am not sure how practical that is going to be. As an executive summary, I would say that she is not acutely dangerous. I have strong suspicions about the hallucinations she is having and their cause, but as a matter of practicality, I am going to treat her with an antidepressant and an antipsychotic. Following up with Mental Health in her hometown would be an important component to her overall care. TRANSINT:[id number] Voice Confirmation ID: [id number] DOCUMENT ID: [id number] LA NENA STEVENS MD at 1319 CC: [id number] DICTATION DATE: 12/14/19 1623 RETURNS CLERK: 12/14/19 2339 DIS IN 12/15/19 [facility] [address] [id number]
--- NOTE | 2019-12-15 17:43 | MORECARE ---
CASE MANAGEMENT DISCHARGE SUMMARY PATIENT: NORMA AHMADI UNIT: [id number] ADM DATE: 12/13/19 AGE: 59 : 62 SEX: F ROOM/BED: D.2104 AUTHOR: VICTORIA BALL PHYSICIAN: REFERRING PHYSICIAN: JUSTIN WHEATLEY DO DATE OF SERVICE: 12/15/19 Discharge Plan Patient Name: NORMA AHMADI Facility: [facility]:[place] : 1960 Planned Disposition: Home Anticipated Discharge Date: 12/15/19 Discharge Date: 12/15/2019 Expected LOS: 2 Initial Reviewer: [email or web address] Initial Review Date: 12/13/2019 Generated: 12/15/19 6:42 pm Comments DCP- Discharge Planning Updated by [email or web address]: Ekta Veneags on 12/15/19 9:[address] CM met with patient to discuss initial discharge planning. Patient is in agreement to proceed with the assessment. Patient reports that she lives at home independently. Patient is alert/oriented. Stairs/steps: one. PCP: [facility] [address] Pharmacy: [facility]. HD: [facility], M/W/F. Patient states she has been able to obtain all of her prescribed medications. HHS: Declines at this time, encouraged her to be in contact with her PCP should she change her mind. DME: None. Emergency contact: Cristiana Victoria (sister) [phone]. Patient is Independent with all ADL's, medication management [employer]. CM discussed the availability of HH, Rehab, SNF, OP Therapy, DME services. Patient denies the need for additional services at this time and feels safe returning to previous environment. Patient denies hospitalization within the past 30 days. Patient denies the use of community resources [employer]. Transportation at time of discharge: A friend from [facility] will drive her home. Patient Name: NORMA AHMADI Page [id number] at 1743 All edits/amendments must be made on the electronic document DICTATION DATE: 12/15/191741 DEPUTY K 9: KAMRYN 12/15/191741 RPT#: [id number] DC DATE:12/15/19 STATUS: DIS IN [facility] [address] [facility] [place] [address] END OF REPORT
== END 2019-12-15 11:49 | disposition home or self-care (01) | DRG 896 ==
LOC: D.M2 14:15
PROVIDERS: ADMIT Internal Medicine; ATTEND Internal Medicine
PROC: 5A1D70Z Performance of Urinary Filtration, Intermittent, Less than 6 Hours Per Day (ICD-10-PCS; principal; 2019-12-13)
DX: F15.151 Other stimulant abuse with stimulant-induced psychotic disorder with hallucinations (principal); N18.6 End stage renal disease; F32.3 Major depressive disorder, single episode, severe with psychotic features; I13.2 Hypertensive heart and chronic kidney disease with heart failure and with stage 5 chronic kidney disease, or end stage renal disease; F15.10 Other stimulant abuse, uncomplicated; I50.9 Heart failure, unspecified; Z99.2 Dependence on renal dialysis; Z86.19 Personal history of other infectious and parasitic diseases